=== PATIENT | male | born 2000 | race Caucasian/White ===

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

== ENCOUNTER 2021-01-02 21:54 | Emergency (ER) | payer BC ==
[~2021-01-02] VITALS: Ht 190.5 cm; Wt 76.2 kg
[2021-01-02] MEDS ORDERED: PROAIR HFA8.5 GM INH (22:05)
[2021-01-02 22:52] LABS: HEMATOCRIT 39.9 % (42.0-52.0); HEMOGLOBIN 13.9 gm/dL (14.0-18.0); MCH 29.6 pg (26.0-34.0); MCHC 34.8 g/dL (28.0-37.0); MCV 85.1 fL (80.0-100.0); MPV 7.8 fl. (7.2-11.1); RBC 4.7 mil/uL (4.50-6.00); WBC 6.6 thou/uL (4.0-11.0)
[2021-01-02 22:57] LABS: CALCIUM 8.9 mg/dL (8.5-10.1); CREATININE 1.3 mg/dL (0.6-1.3); POTASSIUM 3.9 mmol/L (3.5-5.1)
[2021-01-02 23:02] LABS: ALBUMIN 4.5 g/dL (3.4-5.0); TOTAL BILIRUBIN 0.8 mg/dL (<0.1-1.0); TOTAL PROTEIN 7.8 g/dL (6.4-8.2)
[2021-01-02] MEDS ORDERED: TORADOL 10 MG T10 MG PO (23:44)
[2021-01-02 23:57] VITALS: BP 118/68
--- NOTE | 2021-01-03 10:53 | EKG ---
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: [facility] : 2000 Requested By: Lauren Alford Order Number: [id number] MD: James George Measurements Intervals [place] Rate: 56 P: -65 [place]: 150 QRS: 67 QRSD: 104 T: 39 QT: 400 QTc: 387 Interpretive Statements Sinus or ectopic atrial bradycardia with short pr interval early repolarization No previous ECG available for comparison Electronically Signed On 01-03-2021 10:53:05 CDT by James George [email or web address] <ELECTRONICALLY SIGNED> By: James George MD, [facility] 01/03/21 1053 20 20 James George MD, [facility] /EPI
--- NOTE | 2021-01-05 13:37 | EKG ---
[place] [address] ELECTROCARDIOGRAM REPORT Name: BALWINDER LINARES Room: [facility]#: [id number] Admission: 01/02/21 Attend Phys: Discharge: 01/02/21 Date of : [birth year] Date of Service: 01/02/212208 Report #: [id number] THIS REPORT FOR: //name// 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: : 2000 Requested By: Lauren Alford Order Number: [id number] Dione MD: James George Measurements Intervals [place] Rate: 56 P: -30 [place]: 160 QRS: 66 QRSD: 91 T: 36 QT: 390 QTc: 377 Interpretive Statements Sinus bradycardia short pr interval with delta waves consider preexcitation ST depr, consider ischemia, inferior leads ST elevation, consider early repolarization No previous ECG available for comparison Electronically Signed On 01-05-2021 13:37:21 CDT by James George [email or web address] <ELECTRONICALLY SIGNED> By: James George MD, FAC 01/05/21 1337 08 08 James George MD, [facility] /EPI
== END 2021-01-02 23:57 | disposition home or self-care (01) ==
LOC: M.ERS 21:54
PROVIDERS: Personal Emergency Response Attendant
DX: I31.9 Disease of pericardium, unspecified (principal)